=== PATIENT | female | born 1990 | race Caucasian/White ===

== ENCOUNTER 2016-07-26 11:33 | Emergency (ER) | payer BC ==
[2016-07-26] MEDS ORDERED: NATURE THROI PO (12:04)
== END 2016-07-26 13:51 ==
LOC: EDMED 11:33
DX: G43.909 Migraine, unspecified, not intractable, without status migrainosus (principal); F17.210 Nicotine dependence, cigarettes, uncomplicated; E03.9 Hypothyroidism, unspecified
CPT/HCPCS: J1200; J1885; J2765; J7030